=== PATIENT | male | born 1995 | race Caucasian/White ===

== ENCOUNTER 2016-07-27 21:42 | Emergency (ER) | payer MEDICAID ==
[~2016-07-27] VITALS: Ht 167.6 cm; Wt 97.5 kg
[2016-07-27 21:47] VITALS: BP 191/107
--- NOTE | 2016-07-27 23:57 | NUR ---
PT TAKEN TO BED 6
--- NOTE | 2016-07-28 | NUR ---
PT IS 21 Y/O M WITH C/O GENERAL WEAKNESS AND SOB. PT DENIES ANY SOB, BUT STATES FEELS LIKE FAINTING. MED. SEZURES, BIPOLAR, SCHIZOPHRENIA,DEPRESSION, HNT. CHARGE NURSE AND ER MD MADE AWARE. EKG DONE IN TRIAGE, PER ER MD PT OK TO GO TO LOBBY.
--- NOTE | 2016-07-28 00:27 | NUR ---
Dr. Burden evaluating patient at bedside.
[2016-07-28 00:50] VITALS: BP 132/71
--- NOTE | 2016-07-28 00:50 | NUR ---
Patient discharged with v/s stable. Written and verbal after care instructions given and explained. Patient alert, oriented and verbalized understanding of instructions. Ambulatory with steady gait. All questions addressed prior to discharge. ID band removed. Patient advised to follow up with PMD. Rx of XANAX 0.5MG PO given. Patient educated on indication of medication including possible reaction and side effects. Opportunity to ask questions provided and answered.
== END 2016-07-28 00:50 | disposition home or self-care (01) ==
LOC: MED 21:42
DX: F41.9 Anxiety disorder, unspecified (principal); I10 Essential (primary) hypertension; F17.210 Nicotine dependence, cigarettes, uncomplicated; Z71.6 Tobacco abuse counseling
CPT/HCPCS: 99283